=== PATIENT | female | born 1965 | race Caucasian/White ===

== ENCOUNTER 2021-09-29 04:56 | Emergency (ER) | payer BC, OTHER ==
[~2021-09-29] VITALS: Ht 157.5 cm; Wt 63.5 kg
[2021-09-29 04:57] VITALS: BP 157/105
[2021-09-29] MEDS ORDERED: CLEOCIN PO STA (05:12)
[2021-09-29] MEDS ORDERED: TORADOL IM STA (05:12)
[2021-09-29] MEDS ORDERED: CLEOCIN ONE (05:15)
[2021-09-29] MEDS ORDERED: TORADOL ONE (05:15)
--- NOTE | 2021-09-29 05:16 | ER.PDOC ---
General Chief Complaint: Toothache Stated Complaint: DENTAL PAIN Time seen by MD: 05:14 Source: patient Exam Limitations: no limitations History of Present Illness Initial Comments 56-year-old female presents with dental pain. Localized to left lower tooth area. Onset 2 to 3 days ago. Has not seen a dentist in quite some time. No other injuries or complaints at this time. No fever or chills. No vomiting or diarrhea. Allergies: Coded Allergies: No Known Allergies (Unverified , 09/29/21) Past Medical History Medical History: no pertinent history Surgical History: no surgical history Social History Alcohol Use: occassionally Drug Use: none Constitutional: no symptoms reported Eyes: no symptoms reported Ears: no symptoms reported Nose: no symptoms reported Mouth: loose teeth, pain, swelling Throat: no symptoms reported Respiratory: no symptoms reported Cardiovascular: no symptoms reported Gastrointestinal: no symptoms reported Musculoskeletal: no symptoms reported Skin: no symptoms reported Physical Exam General Appearance: alert, no distress Head/Neck: head nml inspection Eyes: eyes nml inspection, PERRL Mouth: dental tenderness, widespread dental decay Throat: pharynx nml Ears/Nose: nml inspection Respiratory: no resp. distress CVS: reg. rate & rhythm Abdomen: non-tender Extremities: non-tender Results/Orders Results/Orders Orders - PRAMOD JAMES MD Ketorolac Tromethamine (Toradol) (09/29/21 05:12) Clindamycin Hcl (Cleocin) (09/29/21 05:12) Vital Signs Date Time Temp Pulse Resp B/P (MAP) Pulse Ox O2 Delivery O2 Flow Rate FiO2 09/29/21 04:57 98.3 87 16 157/105 (122) 98 Room Air 09/29/21 04:57 98.3 87 16 09/29/21 04:57 98.3 87 16 98 ER DEPART Departure Time of Disposition: 05:16 Disposition: 01 HOME / SELF CARE / HOMELESS Impression: Primary Impression: Dental caries Condition: Stable Referrals: PCP,UNKNOWN (PCP) PRIMARY CARE PROVIDER Additional Instructions: Please see a dentist as soon as possible even if you feel the pain is getting better on antibiotics as this is not a long-term solution. Duration or Time Spent with Pa: 15 PRAMOD JAMES MD Sep 29, 2021 05:16
[2021-09-29 05:23] VITALS: BP 148/92
== END 2021-09-29 05:25 | disposition home or self-care (01) ==
LOC: ER 04:56
DX: K02.9 Dental caries, unspecified (principal)
CPT/HCPCS: 96372; 99284; J1885; 99283